=== PATIENT | male | born 1980 | race Caucasian/White ===

== ENCOUNTER 2020-03-10 04:49 | Day surgery (SDC) | payer OTHER ==
[2020-03-10] MEDS ORDERED: LIDOCAINE HCL/PF 1% SDV 5ML VIAL ONE (12:08)
[2020-03-10] MEDS ORDERED: DEXAMETHASONE SOD PHOSPHATE/PF 10 MG/ML SDV ONE (12:08)
[2020-03-10] MEDS ORDERED: IOHEXOL 180 MG/1 ML ML IJ ONE (13:46)
[2020-03-10] MEDS ORDERED: BUPIVACAINE HCL/PF 0.5% (5 MG/ML) 30 ML VIAL IJ ONE (13:46)
[2020-03-10 15:48] VITALS: BP 139/86; PULSE 73; TEMP 98.7
== END 2020-03-10 15:30 | disposition home or self-care (01) ==
LOC: JASU-SURG 04:49
PROVIDERS: ATTEND Pain Medicine Pain Medicine
PROC: 3E0T33Z Introduction of Anti-inflammatory into Peripheral Nerves and Plexi, Percutaneous Approach (ICD-10-PCS; 2020-03-10)
PROC: 3E0T3BZ Introduction of Anesthetic Agent into Peripheral Nerves and Plexi, Percutaneous Approach (ICD-10-PCS; principal; 2020-03-10 13:00)
DX: M47.812 Spondylosis without myelopathy or radiculopathy, cervical region (principal)
CPT/HCPCS: 76000-TC-FY

== ENCOUNTER 2022-08-27 16:53 | Emergency (ER) | payer OTHER ==
[2022-08-27 16:59] VITALS: RESP 18; BMI 29.0
[2022-08-27] MEDS ORDERED: LIDOCAINE VISCOUS 2% ORAL/TOP 15 ML UNIT-DOSE CUP MM ONE (17:33)
[2022-08-27] MEDS ORDERED: LIDOCAINE VISCOUS 2% ORAL/TOP 15 ML UNIT-DOSE CUP ONE (17:49)
[2022-08-27] MEDS ORDERED: ACETAMINOPHEN 1000 MG/100 ML BAG IVPB ONE (18:49)
[2022-08-27] MEDS ORDERED: ACETAMINOPHEN INJECTION 100 ML IVPB ONE (19:01)
[2022-08-27 20:05] LABS: BASO % 0.9 % (0-2.0); EOS % 2.9 % (0-4.5); HEMATOCRIT 39.7 % (35.4-49); HEMOGLOBIN 14.5 GM/dL (11.7-16.9); LYMPH % 41.4 % (8-40); MCH 32.3 pg (25.7-33.7); MCHC 36.4 g/dl (32.0-35.9); MEAN CELL VOLUME 88.7 fl (80-96); MEAN PLT VOLUME 8.1 fl (7.5-11.1); MONO % 5.8 % (3.8-10.2); PLATELET COUNT 171 10^3/uL (134-434); RBC 4.47 M/mm3 (4.00-5.60); RDW 12.8 % (11.9-15.9); WHITE BLOOD COUNT 4.7 K/mm3 (4.0-10.0)
[2022-08-27 20:12] LABS: INR 0.96 (0.83-1.09); PROTHROMBIN TIME (PATIENT) 11.1 SEC (9.7-13.0)
[2022-08-27 20:15] LABS: ACTIVATED PTT 30.7 SECONDS (25.2-36.5)
[2022-08-27 20:27] LABS: POTASSIUM 3.9 mmol/L (3.5-5.1)
[2022-08-27 20:29] LABS: CALCIUM 8.9 mg/dL (8.5-10.1)
[2022-08-27 20:30] LABS: ALBUMIN 3.7 g/dl (3.4-5.0); BLOOD UREA NITROGEN 16.4 mg/dL (7-18)
[2022-08-27 20:33] LABS: CREATININE 0.9 mg/dL (0.55-1.3)
[2022-08-27 20:34] LABS: TOT PROT 8.1 g/dl (6.4-8.2)
[2022-08-28 01:49] VITALS: BP 122/68; PULSE 78; TEMP 98
== END 2022-08-28 01:50 | disposition short-term general hospital (02) ==
LOC: JER 16:53
PROC: 3E033NZ Introduction of Analgesics, Hypnotics, Sedatives into Peripheral Vein, Percutaneous Approach (ICD-10-PCS; principal; 2022-08-27)
DX: T17.208A Unspecified foreign body in pharynx causing other injury, initial encounter (principal); R09.89 Other specified symptoms and signs involving the circulatory and respiratory systems; R07.0 Pain in throat; Z20.822 Contact with and (suspected) exposure to COVID-19
CPT/HCPCS: 0241U-QW; 36415; 70490-TC; 80053; 85025; 85610; 85730; 86850; 86900; 86901; 99285-25